=== PATIENT | male | born 1980 | race Caucasian/White ===

== ENCOUNTER 2019-02-14 20:28 | Emergency (ER) | payer MEDICAID, OTHER ==
[~2019-02-14] VITALS: Ht 180.3 cm; Wt 101.7 kg
[2019-02-14 20:30] VITALS: BP 145/91
[2019-02-14] MEDS ORDERED: KETOROLAC 30 MG/1 ML IM ONE (21:00)
[2019-02-14] MEDS ORDERED: KETOROLAC 60 MG/2 ML ONE (21:00)
--- NOTE | 2019-02-14 21:00 | NUR ---
PT TO US VIA [facility].
--- NOTE | 2019-02-14 21:36 | NUR ---
PT MEDICATED PER ORDERS. UNDERSTANDS POC. IS CURRENTLY IN DRUG REHAB PROGRAM THROUGH [facility].
--- NOTE | 2019-02-14 21:52 | NUR ---
MAYITO GORE AT FOR SPLINT APPLICATION.
--- NOTE | 2019-02-14 22:05 | NUR ---
CRUTCHES AND CRUTCH TEACHING PROVIDED. D/C INSTRUCTIONS, MEDS & F/U APPT RV'WD WITH PT, HE VERBALIZES UNDERSTANDING. Addendum: 02/14/19 at 6 by HBENSON RX GIVEN X1. Addendum: 02/14/19 at 2 by HBENSON PT AMBULATED OUT OF ED WITH CRUTCHES WITHOUT DIFFICULTY.
== END 2019-02-14 22:14 | disposition home or self-care (01) ==
LOC: ED 22:13
DX: S86.111A Strain of other muscle(s) and tendon(s) of posterior muscle group at lower leg level, right leg, initial encounter (principal); I10 Essential (primary) hypertension; M79.661 Pain in right lower leg; F17.210 Nicotine dependence, cigarettes, uncomplicated; X58.XXXA Exposure to other specified factors, initial encounter; Y93.89 Activity, other specified; Y92.410 Unspecified street and highway as the place of occurrence of the external cause; Y99.8 Other external cause status
CPT/HCPCS: 29515; 93971; 96372; 99284; J1885

== ENCOUNTER 2020-07-17 09:28 | Emergency (ER) | payer MEDICAID ==
[~2020-07-17] VITALS: Ht 182.9 cm; Wt 99.4 kg
--- NOTE | 2020-07-17 09:47 | NUR ---
NO ANSWER FROM TRIAGE
--- NOTE | 2020-07-17 11:17 | NUR ---
DR. ISLAS AT BEDSIDE TO DISCUSS POC.
[2020-07-17 11:19] VITALS: BP 111/68
== END 2020-07-17 12:17 | disposition home or self-care (01) ==
LOC: ED 11:45
DX: S62.231A Other displaced fracture of base of first metacarpal bone, right hand, initial encounter for closed fracture (principal); I10 Essential (primary) hypertension; F17.200 Nicotine dependence, unspecified, uncomplicated; X58.XXXA Exposure to other specified factors, initial encounter; Y93.89 Activity, other specified; Y92.89 Other specified places as the place of occurrence of the external cause; Y99.8 Other external cause status
CPT/HCPCS: 29125; 99283